=== PATIENT | male | born 1960 | race Caucasian/White ===

== ENCOUNTER → 2016-11-21 | Outpatient (CLI) | payer BC ==
[~2016-11-21] MED LIST: ACET-1257; CAPS0.022; IBUP-103 PO; IBUP-1050 PO; LRS10 PO; METH1TAB81 PO
== END | disposition home or self-care (01) ==
LOC: C.LAB 16:52
PROVIDERS: ATTEND Nurse Practitioner Family
DX: N40.0 Benign prostatic hyperplasia without lower urinary tract symptoms (principal); N41.9 Inflammatory disease of prostate, unspecified

== ENCOUNTER 2017-03-07 15:50 | Emergency (ER) | payer BC ==
[~2017-03-07] VITALS: Ht 193 cm; Wt 102.1 kg
[~2017-03-07 15:50] MED LIST changes: -IBUP-103 PO; -IBUP-1050 PO; -LRS10 PO; -METH1TAB81 PO
[2017-03-07 16:12] VITALS: TEMP 36.8; Ht 193 cm; Wt 102.1 kg
[2017-03-07] MEDS ORDERED: IBUP-1050 PO (17:17)
[2017-03-07] MEDS ORDERED: SODIUM CHLORIDE 0.9% 1000ML 1,000 ML IV STA (17:19)
[2017-03-07] MEDS ORDERED: ONDANSETRON INJ 2 MG/ML 2 ML VIAL IV STA (17:19)
[2017-03-07 18:15] LABS: URINE APPEARANCE CLEAR (CLEAR); URINE BILIRUBIN NEG (NEG); URINE COLOR YELLOW; URINE NITRITE NEG (NEG); URINE SPECIFIC GRAVITY 1.027 (1.000-1.030); UROBILINOGEN NEG (NEG)
[2017-03-07 18:16] LABS: BASO % 0.4 %; BASO ABS # 0.03 K/uL (0-0.2); COMPLETE YES; EOS % 6.7 %; HEMATOCRIT 40.3 % (42-52); IG% 0.1 %; LYMPH % 27.3 %; LYMPH ABS # 1.99 K/uL (1.2-3.4); MEAN CELL VOLUME 87.8 fL (80-100); MEAN CORPUSCULAR HEMOGLOBIN 31.2 pg (25-34); MEAN CORPUSCULAR HGB CONC 35.5 g/dl (32-36); MEAN PLATELET VOLUME 9.5 fL (7.4-10.4); MONO % 8.6 %; NEUT % 56.9 %; PLATELET COUNT 274 K/uL (130-400); RED BLOOD COUNT 4.59 M/uL (4.7-6.1); WHITE BLOOD COUNT 7.29 K/uL (4.8-10.8)
[2017-03-07 18:19] LABS: MANUAL MICROSCOPIC REQUIRED? NO; REVIEW REQ? NO
[2017-03-07 18:32] LABS: CREATININE 0.85 mg/dl (0.60-1.40)
[2017-03-07 18:33] LABS: CALCIUM 8.9 mg/dl (8.5-10.1); POTASSIUM 3.8 mmol/L (3.5-5.1)
--- NOTE | 2017-03-07 18:35 | DIAGNOSTIC IMAGING REPORT ---
ABDOMEN AND PELVIS CT WITHOUT CONTRAST CT DOSE: 1750.60 mGy.cm HISTORY: left flank eval for stone TECHNIQUE: Multiaxial CT images of the abdomen and pelvis were performed without the use of intravenous and oral contrast according to the standard department stone protocol. A dose lowering technique was utilized adhering to the principles of ALARA. COMPARISON STUDY: Abdomen and pelvis CT 06/10/2015. FINDINGS: Mild dependent changes seen within the lung bases posteriorly. No acute fractures within the visualized osseous structures. Small fat-containing left inguinal hernia. Tiny fat-containing umbilical hernia. Possible 7 mm hypodense lesion within the right hepatic dome. This is too small to characterize. The unenhanced spleen, adrenal glands, pancreas, and gallbladder are unremarkable. No retroperitoneal lymphadenopathy. No renal or ureteral stones. No hydronephrosis. The bladder is unremarkable. Mild bilateral perinephric edema, unchanged. A 9 mm midline cyst within the prostate gland. This remains unchanged. Suboptimal evaluation for bowel pathology due to the lack of intravenous and oral contrast. However, there is no definite bowel wall thickening or obstruction. Normal appendix. Colonic diverticulosis. IMPRESSION: 1. No renal or ureteral stones. No hydronephrosis. 2. No definite bowel wall thickening or obstruction. 3. Colonic diverticulosis. 4. Normal appendix. 5. Additional findings as described above. Electronically signed by: Harsh Westbrook M.D. 03/07/2017 6:34 PM Dictated Date/Time: 03/07/2017 6:27 PM
[2017-03-07 19:29] VITALS: BP 123/88; PULSE 75; O2SAT 97
--- NOTE | 2017-03-08 00:03 | EMERGENCY ROOM VISIT NOTE ---
History Report prepared by Suzanne: Kelli Chan Under the Supervision of: Dr. Brodie Agosto M.D. First contact with patient: 17:12 Chief Complaint: ABDOMINAL PAIN Stated Complaint: ABD PAIN Nursing Triage Summary: Pt reports pain between umbilicus and groin x 1 week. Pt reports pain now in the left flank. associated nausea, dark stool, loose "different than usual" Hx of Diverticulosis History of Present Illness The patient is a 56 year old male who presents to the Emergency Room with complaints of worsening lower abdominal pain for the past week. The pain is located between his belly button and his groin. He describes it as an irritation. He notices the pain more at night. The pain was worse last night than it had been previously. Today he started having pain in his left flank. He notes that he has been urinating more frequently. His urine seems to be darker, but does not have any blood. His bowel movement this morning was looser than usual, but did not have any blood. He has been nauseous today. He denies any fever or vomiting. He has a history of diverticulitis. His left flank pain is similar to his previous diverticulitis pain. He denies any history of kidney stones. Source of History: patient Onset: 1 week ago Position: abdomen (lower) Quality: other (irritation) Timing: worsening Modifying Factors (Worsening): other (night time) Associated Symptoms: + nausea, No fevers, No vomiting, No hematochezia Note: Pt reports left flank pain, urinary frequency, darker urine. Pt denies hematuria. Review of Systems See HPI for pertinent positives & negatives. A total of 10 systems reviewed and were otherwise negative. Past Medical & Surgical Medical Problems: (1) Diverticulosis of colon without diverticulitis Family History No pertinent family history stated. Social History Smoking Status: Former Smoker Alcohol Use: occasionally Marital Status: Occupation Status: employed Current/Historical Medications Scheduled PRN Ibuprofen (Advil), 200 MG PO for Pain Allergies Coded Allergies: POLLEN (Verified Allergy, Intermediate, MULTIPLE SYMPTOMS, 03/07/17) Physical Exam Vital Signs Date Time Temp Pulse Resp B/P (MAP) Pulse Ox O2 Delivery O2 Flow Rate FiO2 03/07/17 19:29 75 18 123/88 97 03/07/17 17:56 70 16 118/77 96 Room Air 03/07/17 16:12 36.8 78 18 133/89 97 Room Air Physical Exam Constitutional: Vital signs reviewed. Eyes: Pupils are equal round reactive to light. Conjunctiva are noninjected. ENT: Pharynx is clear without erythema or exudate. Mucous membranes are moist. Neck supple without meningeal signs. Respiratory: Clear to auscultation bilaterally. Breath sounds are equal bilaterally. Cardiovascular: Regular rate and rhythm. No rubs or gallops. GI: Soft, nondistended, mild suprapubic and LLQ tenderness, no guarding. Bowel sounds are present. Musculoskeletal: No peripheral edema. No CVA tenderness. Integumentary: No cyanosis. Neurological: The patient is awake and alert. No focal deficits. Psychiatric: Normal affect. Medical Decision & Procedures ER Provider Diagnostic Interpretation: Radiology results as stated below per my review and the radiologist's interpretation: ABDOMEN AND PELVIS CT WITHOUT CONTRAST CT DOSE: 1750.60 mGy.cm HISTORY: left flank eval for stone TECHNIQUE: Multiaxial CT images of the abdomen and pelvis were performed without the use of intravenous and oral contrast according to the standard department stone protocol. A dose lowering technique was utilized adhering to the principles of ALARA. COMPARISON STUDY: Abdomen and pelvis CT 06/10/2015. FINDINGS: Mild dependent changes seen within the lung bases posteriorly. No acute fractures within the visualized osseous structures. Small fat-containing left inguinal hernia. Tiny fat-containing umbilical hernia. Possible 7 mm hypodense lesion within the right hepatic dome. This is too small to characterize. The unenhanced spleen, adrenal glands, pancreas, and gallbladder are unremarkable. No retroperitoneal lymphadenopathy. No renal or ureteral stones. No hydronephrosis. The bladder is unremarkable. Mild bilateral perinephric edema, unchanged. A 9 mm midline cyst within the prostate gland. This remains unchanged. Suboptimal evaluation for bowel pathology due to the lack of intravenous and oral contrast. However, there is no definite bowel wall thickening or obstruction. Normal appendix. Colonic diverticulosis. IMPRESSION: 1. No renal or ureteral stones. No hydronephrosis. 2. No definite bowel wall thickening or obstruction. 3. Colonic diverticulosis. 4. Normal appendix. 5. Additional findings as described above. Electronically signed by: Harsh Westbrook M.D. 03/07/2017 6:34 PM Dictated Date/Time: 03/07/2017 6:27 PM Laboratory Results 03/07/17 17:50 Red Blood Count 4.59, Mean Corpuscular Volume 87.8, Mean Corpuscular Hemoglobin 31.2, Mean Corpuscular Hemoglobin Concent 35.5, Mean Platelet Volume 9.5, Neutrophils (%) (Auto) 56.9, Lymphocytes (%) (Auto) 27.3, Monocytes (%) (Auto) 8.6, Eosinophils (%) (Auto) 6.7, Basophils (%) (Auto) 0.4, Neutrophils # (Auto) 4.14, Lymphocytes # (Auto) 1.99, Monocytes # (Auto) 0.63, Eosinophils # (Auto) 0.49, Basophils # (Auto) 0.03 03/07/17 17:50 Test 03/07/17 17:50 03/07/17 18:00 White Blood Count 7.29 K/uL (4.8-10.8) Red Blood Count 4.59 M/uL (4.7-6.1) Hemoglobin 14.3 g/dL (14.0-18.0) Hematocrit 40.3 % (42-52) Mean Corpuscular Volume 87.8 fL (80-100) Mean Corpuscular Hemoglobin 31.2 pg (25-34) Mean Corpuscular Hemoglobin Concent 35.5 g/dl (32-36) Platelet Count 274 K/uL (130-400) Mean Platelet Volume 9.5 fL (7.4-10.4) Neutrophils (%) (Auto) 56.9 % Lymphocytes (%) (Auto) 27.3 % Monocytes (%) (Auto) 8.6 % Eosinophils (%) (Auto) 6.7 % Basophils (%) (Auto) 0.4 % Neutrophils # (Auto) 4.14 K/uL (1.4-6.5) Lymphocytes # (Auto) 1.99 K/uL (1.2-3.4) Monocytes # (Auto) 0.63 K/uL (0.11-0.59) Eosinophils # (Auto) 0.49 K/uL (0-0.5) Basophils # (Auto) 0.03 K/uL (0-0.2) RDW Standard Deviation 39.2 fL (36.4-46.3) RDW Coefficient of Variation 12.2 % (11.5-14.5) Immature Granulocyte % (Auto) 0.1 % Immature Granulocyte # (Auto) 0.01 K/uL (0.00-0.02) Anion Gap 5.0 mmol/L (3-11) Est Creatinine Clear Calc Drug Dose 116.3 ml/min Estimated GFR () 111.3 Estimated GFR (Non- 96.0 BUN/Creatinine Ratio 16.0 (10-20) Calcium Level 8.9 mg/dl (8.5-10.1) Total Bilirubin 0.7 mg/dl (0.2-1) Direct Bilirubin 0.2 mg/dl (0-0.2) Aspartate Amino Transf (AST/SGOT) 21 U/L (15-37) Alanine Aminotransferase (ALT/SGPT) 28 U/L (12-78) Alkaline Phosphatase 67 U/L (45-117) Total Protein 7.2 gm/dl (6.4-8.2) Albumin 4.0 gm/dl (3.4-5.0) Lipase 129 U/L (73-393) Urine Color YELLOW Urine Appearance CLEAR (CLEAR) Urine pH 5.0 (4.5-7.5) Urine Specific [place] 1.027 (1.000-1.030) Urine Protein NEG (NEG) Urine Glucose (UA) NEG (NEG) Urine Ketones TRACE (NEG) Urine Occult Blood NEG (NEG) Urine Nitrite NEG (NEG) Urine Bilirubin NEG (NEG) Urine Urobilinogen NEG (NEG) Urine Leukocyte Esterase NEG (NEG) Laboratory results as reviewed by me. Medications Administered Medications (Trade) Dose Ordered Sig/Shannan Route Start Time Stop Time Status Last Admin Dose Admin Ondansetron HCl (Zofran Inj) 4 mg NOW STAT IV 03/07/17 17:19 03/07/17 17:21 DC 03/07/17 17:55 4 MG Sodium Chloride 1,000 ml @ 999 mls/hr Q1H1M STAT IV 03/07/17 17:19 03/07/17 18:19 DC 03/07/17 17:55 999 MLS/HR ED Course 1714: The patient was evaluated in room C1B. A complete history and physical exam was performed. 1718: NSS 1000 ml @ 999 mls/hr IV, Zofran Inj 4 mg IV. 5: I reevaluated the patient. He is resting comfortably. I discussed the test results including incidental findings on the CT. I reexamined the patient. He has no significant tenderness and inguinal and umbilical hernias are both reducible. He was given a copy of the CT report to take to his doctor for follow up. He verbalized agreement of the treatment plan. He was discharged home. Medical Decision This is a 56-year-old male who presents with left flank pain. Differential diagnosis includes diverticulitis, perforation, abscess, kidney stone, strain, UTI. I did perform a limited focused review of portions of the patient's old chart on the electronic medical record. The patient was seen last month for back pain by pain management. I did evaluate the patient as noted above. The patient is presenting with left- sided flank pain. He initially had some suprapubic and periumbilical pain. IV access was established. I did treat the patient with IV Zofran and normal saline IV. I did order and personally review the patient's urinalysis as described above. I did order and review the patient's blood work as noted in the electronic medical record. His white blood cell count is not elevated. I did order a CT of the abdomen and pelvis. I did review the images myself as well as the radiology report as described above. He does have incidental findings which I discussed with him. No acute process. There is no evidence of diverticulitis or kidney stone. I did reexamine the patient. He has no significant tenderness on exam. He has a reducible umbilical hernia and inguinal hernia without tenderness. I did give him a copy of his CT report. He was advised follow closely with his doctor for further evaluation. He was discharged in good condition. Medication Reconcilliation Current Medication List: was personally reviewed by me Blood Pressure Screening Patient's blood pressure: Elevated blood pressure Blood pressure disposition: Referred to PCP Impression Primary Impression: Lower abdominal pain Additional Impressions: Left inguinal hernia Umbilical hernia Scribe Attestation The scribe's documentation has been prepared under my direct and personally reviewed by me in its entirety. I confirm that the note above accurately reflects all work, treatment, procedures, and medical decision making performed by me. Departure Information Dispostion Home / Self-Care Referrals Nettie Stern PA-C (PCP) Forms Call Back Authorization, HOME CARE DOCUMENTATION FORM, IMPORTANT VISIT INFORMATION Patient Instructions ED Abdominal Pain Unkn Cause Male, [facility] Additional Instructions You have been examined and treated today on an emergency basis only. This is not a substitute for, or an effort to provide, complete comprehensive medical care. It is impossible to recognize and treat all injuries or illnesses in a single emergency department visit. It is therefore important that you follow up closely with your physician. Call as soon as possible for an appointment. Discuss your CT results with your doctor. Return for worsening symptoms or if you develop fever, vomiting, rectal bleeding or any other concerning symptoms. Problem Qualifiers Additional Impressions: Umbilical hernia Obstruction and gangrene presence: without obstruction or gangrene Qualified Codes: K42.9 - Umbilical hernia without obstruction or gangrene
== END 2017-03-07 19:25 | disposition home or self-care (01) ==
LOC: C.EDB 15:51 → C.EDC 19:25
DX: K40.90 Unilateral inguinal hernia, without obstruction or gangrene, not specified as recurrent (principal); K42.9 Umbilical hernia without obstruction or gangrene; K57.30 Diverticulosis of large intestine without perforation or abscess without bleeding; Z87.891 Personal history of nicotine dependence; Z91.09 Other allergy status, other than to drugs and biological substances

== ENCOUNTER → 2017-06-11 | Outpatient (CLI) | payer BC ==
[~2017-06-11] MED LIST changes: -ACET-1257; -CAPS0.022; +IBUP-1050 PO; +LRS10 PO
== END | disposition home or self-care (01) ==
LOC: C.RDSM 14:36
PROVIDERS: ATTEND Family Medicine Sports Medicine
DX: M25.561 Pain in right knee (principal)

== ENCOUNTER → 2018-03-13 | Outpatient (CLI) | payer BC | END | disposition home or self-care (01) | LOC: C.LAB 15:33 | PROVIDERS: ATTEND Urology | DX: R30.0 Dysuria (principal); N41.9 Inflammatory disease of prostate, unspecified ==